=== PATIENT | female | born 1965 | race African-American/Black ===

== ENCOUNTER 2018-10-26 12:07 | Emergency (ER) | payer OTHER ==
[~2018-10-26] VITALS: Ht 160 cm; Wt 63.5 kg
[2018-10-26] MEDS ORDERED: NAPROXEN500 M2 ORAL (12:13)
--- NOTE | 2018-10-26 12:13 | Emergency Room Report ---
History of Present Illness General Chief Complaint: Medical Clearance Source: EMS Present Illness HPI 53-year-old female with a past medical history of chronic low back pain due to a fracture that occurred [address] [facility] brought in by [employer] for medical clearance pain. Patient reports 10 out of 10 pain low back pain without radiation and constant. She reports that she had a prescription for [place] however never picked it up due to being arrested. Denies tingling numbness, urinary and bowel incontinence, saddle paresthesia. No chest pain, shortness of breath, palpitation, abdominal pain, nausea vomiting or other associated symptoms. Allergies: Coded Allergies: No Known Allergies (Unverified , 10/26/18) Patient History Past Medical History: see triage record Past Surgical History: unable to obtain Pertinent Family History: none Last Menstrual Period: hystrectomy Now: No Immunizations: UTD Reviewed Nursing Documentation: PMH: Agreed; PSxH: Agreed Nursing Documentation-PMH Hx Cardiac Problems: Yes - Hystrectomy Hx Asthma: Yes Review of Systems All Other Systems: negative except mentioned in HPI Physical Exam Vital Signs Date Time Temp Pulse Resp B/P (MAP) Pulse Ox O2 Delivery O2 Flow Rate FiO2 10/26/18 11:59 97.9 95 16 110/76 (87) 99 Room Air Sp02 EP Interpretation: reviewed, normal General Appearance: normal inspection, well appearing, no apparent distress Head: normocephalic, atraumatic Eyes: bilateral eye normal inspection, bilateral eye PERRL ENT: normal ENT inspection, hearing grossly normal, normal pharynx Neck: normal inspection, full range of motion, supple, thyroid normal Respiratory: normal inspection, chest non-tender, lungs clear, normal breath sounds, no wheezing Cardiovascular #1: normal inspection, regular rate, rhythm, no edema, no murmur , normal capillary refill Gastrointestinal: normal inspection, soft Genitourinary: no CVA tenderness Musculoskeletal: back normal, gait/station normal, normal range of motion, other - Wearing a back brace Neurologic: normal inspection, alert, oriented x3, responsive Psychiatric: normal inspection, judgement/insight normal Skin: normal color Lymphatic: normal inspection, no adenopathy Medical Decision Making PA Attestation All my diagnosis and treatment plans were reviewed ad discussed with my supervising physician Dr. Erwin Diagnostic Impression: Primary Impression: Chronic back pain ER Course 53-year-old female with a past medical history of chronic low back pain due to a fracture that occurred [address] [facility] brought in by [employer] for medical clearance pain. Patient reports 10 out of 10 pain low back pain without radiation and constant. She reports that she had a prescription for [place] however never picked it up due to being arrested. Denies tingling numbness, urinary and bowel incontinence, saddle paresthesia. No chest pain, shortness of breath, palpitation, abdominal pain, nausea vomiting or other associated symptoms. Ddx considered but are not limited to: Lumbar spine sprain, strain, fracture, contusion, neuropathy Vital signs: are WNL, pt. is afebrile H&PE are most consistent with: Chronic low back pain ORDERS: Naproxen ER intervention: Naproxen DISCHARGE: At this time pt. is stable for d/c to home. Will provide printed patient care instructions, and any necessary prescriptions. Care plan and follow up instructions have been discussed with the patient prior to discharge. Patient was cleared to go to senior care with [employer] at this time no further imaging is needed as she had recently done imaging and need to follow-up with primary care provider and pain management Last Vital Signs Date Time Temp Pulse Resp B/P (MAP) Pulse Ox O2 Delivery O2 Flow Rate FiO2 10/26/18 11:59 97.9 95 16 110/76 (87) 99 Room Air Disposition: D/C TO [facility] Condition: Stable Scripts Naproxen* (NAPROXEN*) 500 Mg Tablet 500 MG ORAL TWICE A DAY, #30 TAB Prov: Max Burch 10/26/18 Patient Instructions: Chronic Back Pain Max Burch Oct 26, 2018 12:13
[2018-10-26] MEDS ORDERED: Naproxen 500mg tab ORAL ONE (12:15)
[2018-10-26 12:34] VITALS: BP 110/76
--- NOTE | 2018-10-26 12:35 | NUR ---
ED Nurse Note:pt. was cleared for booking to nursing home, [employer] officer signed d/c instructions and pt. was taken away
[2018-10-26 12:42] VITALS: BP 110/76
== END 2018-10-26 12:44 ==
LOC: EDBD 12:07 → EMR 12:40
DX: M54.5 Low back pain (principal); G89.29 Other chronic pain; Z90.710 Acquired absence of both cervix and uterus
CPT/HCPCS: 99283

== ENCOUNTER 2020-05-05 22:00 | Emergency (ER) | payer OTHER ==
[~2020-05-05] VITALS: Ht 177.8 cm; Wt 81.6 kg
[~2020-05-05 22:00] MED LIST: NAPROXEN500 M2 ORAL
--- NOTE | 2020-05-05 22:40 | Emergency Room Report ---
History of Present Illness General Chief Complaint: Female Urogenital Problems Source: Patient Present Illness HPI Patient presents with 1 week of dysuria. She also has some hesitancy. When she is urinating the pain is rated 9/10. Otherwise it is 0/10. Initially she felt feverish but did not document a temperature. She also notes a foul odor to the urine for approximately 1 month. She was treated for a UTI 8 months ago. The patient denies any external lesions in the genitalia. Patient denies exposure to Covid positive contacts. Patient has a history of hepatitis C. Patient is treated for depression with Seroquel. No sore throat, chest pain, palpitations, nausea, vomiting, diarrhea, shortness of breath, joint pain, rashes, visual changes, dizziness, headache. Allergies: Coded Allergies: No Known Allergies (Unverified , 10/26/18) COVID-19 Screening Contact w/high risk pt: No Experienced COVID-19 symptoms?: No COVID-19 Testing performed [employer] PORT[employer] ARCHITECT: No COVID-19 Screening: Negative COVID-19 COVID-19 Testing Source: project room esparza Patient History Past Medical History: see triage record, other - Hepatitis C Social History: Reports: smoking; Denies: alcohol use, drug use - IV drug abuse Social History Narrative Living with girlfriend Now: No Reviewed Nursing Documentation: PMH: Agreed; PSxH: Agreed Nursing Documentation-PMH Hx Cardiac Problems: Yes - Hystrectomy Hx Asthma: Yes History Of Psychiatric Problem: Yes Review of Systems All Other Systems: negative except mentioned in HPI Physical Exam Vital Signs Date Time Temp Pulse Resp B/P (MAP) Pulse Ox O2 Delivery O2 Flow Rate FiO2 05/05/20 22:15 98.4 85 20 134/67 (89) 98 Room Air Sp02 EP Interpretation: reviewed, normal General Appearance: well appearing, no apparent distress, GCS 15 Head: normocephalic Eyes: bilateral eye normal inspection, bilateral eye PERRL ENT: other - Wearing a mask Neck: normal inspection Respiratory: normal inspection Cardiovascular #1: regular rate, rhythm Cardiovascular #2: 2+ radial (R) Gastrointestinal: normal inspection Musculoskeletal: gait/station normal Neurologic: alert, grossly normal Psychiatric: mood/affect normal Skin: other - Fully dressed Medical Decision Making Diagnostic Impression: Primary Impression: UTI (urinary tract infection) Qualified Codes: N30.00 - Acute cystitis without hematuria ER Course Patient presents with dysuria. Differential includes UTI, vaginitis amongst others. There is no evidence of pyelonephritis at this time and the patient is nontoxic. Urinalysis is indicated. In addition the patient will be treated with Pyridium, Tylenol and Macrobid. Urinalysis with minimal pyuria. Discussed with the patient that the urinalysis is not diagnostic for urinary tract infection. However the patient has symptoms consistent with urinary tract infection. Advised the patient for outpatient follow-up. She is not improved she is advised to return. Patient stable for outpatient observation and treatment. Laboratory Tests Test 05/05/20 23:40 Urine Color Pale yellow Urine Appearance Clear Urine pH 6.5 (4.5-8.0) Urine Specific [place] 1.010 (1.005-1.035) Urine Protein Negative (NEGATIVE) Urine Glucose (UA) Negative (NEGATIVE) Urine Ketones Negative (NEGATIVE) Urine Blood Negative (NEGATIVE) Urine Nitrite Negative (NEGATIVE) Urine Bilirubin Negative (NEGATIVE) Urine Urobilinogen Normal MG/DL (0.0-1.0) Urine Leukocyte Esterase 1+ (NEGATIVE) H Urine RBC 0-2 /HPF (0 - 2) Urine WBC 0-2 /HPF (0 - 2) Urine Squamous Epithelial Cells Few /LPF (NONE/OCC) Urine Bacteria None /HPF (NONE) Last Vital Signs Date Time Temp Pulse Resp B/P (MAP) Pulse Ox O2 Delivery O2 Flow Rate FiO2 05/05/20 23:55 98.3 77 20 11/74 99 Room Air Status: improved Disposition: HOME, SELF-CARE Condition: Improved Scripts Acetaminophen (Tylenol) 325 Mg Tablet 650 MG ORAL Q6H PRN for Prn Pain/Headache/Temp > 101, #20 TAB 0 Refills Prov: Jett Abdalla MD 05/05/20 Phenazopyridine Hcl* (PYRIDIUM*) 200 Mg Tablet 200 MG ORAL THREE TIMES A DAY, #9 TAB 0 Refills Prov: Jett Abdalla MD 05/05/20 Nitrofurantoin Monohyd/M-Cryst* (MACROBID 100 MG*) 100 Mg Capsule 100 MG ORAL EVERY 12 HOURS, #14 CAP Prov: Jett Abdalla MD 05/05/20 Referrals: [facility],REFERRING (PCP) Jett Abdalla MD May 05, 2020 22:40
[2020-05-05] MEDS ORDERED: Phenazopyridine 200mg tab ORAL ONE (22:45)
--- NOTE | 2020-05-05 22:45 | NUR ---
ED Nurse Note: Recieved pt from home, here with c/o burning during urination x 2 days, denies fevers, nausea or emesis or any other complaints, pt denies vaginal discharge or odor, pt states had uti 1 month ago but did not complete meds and it came back, pt denies any other complaints or discomforts, pt assisted to bathroom for urine sample but states she forgot to collect, pt given water, will continnue to monitor while waiting for urine sample, pt has abd pain at 8/10, no other pain, sob, cp or discomforts.
[2020-05-05] MEDS ORDERED: NITROFURANTOIN100 M2 ORAL (22:50)
[2020-05-05] MEDS ORDERED: TYLENOL325 MG ORAL (22:50)
[2020-05-05] MEDS ORDERED: PHENAZOPYRIDIN200 MG ORAL (22:50)
[2020-05-05 23:45] VITALS: BP 11/74
[2020-05-05 23:51] LABS: APPEARANCE,URINE CLEAR; BILIRUBIN, URINE NEGATIVE (NEGATIVE); COLOR,URINE PALE YELLOW; GLUCOSE, URINE (UA) NEGATIVE (NEGATIVE); KETONES,URINE NEGATIVE (NEGATIVE); LEUKOCYTE ESTERASE ,URINE 1+ (NEGATIVE); NITRITE,URINE NEGATIVE (NEGATIVE); PH,URINE 6.5 (4.5-8.0); PROTEIN,URINE NEGATIVE (NEGATIVE); UROBILINOGEN,URINE NORMAL MG/DL (0.0-1.0)
[2020-05-05 23:55] VITALS: BP 11/74
--- NOTE | 2020-05-05 23:55 | NUR ---
ER DISCHARGE NOTE: Patient is cleared to be discharged per ERMD, pt is aox4, on room air, with stable vital signs. pt was given dc and prescription instructions, pt was able to verbalize understanding, pt id band removed without complications. pt is able to ambulate with steady gait. pt took all belongings.
== END 2020-05-05 23:55 | disposition home or self-care (01) ==
LOC: EMR 22:30
DX: N30.00 Acute cystitis without hematuria (principal); J45.909 Unspecified asthma, uncomplicated; F17.200 Nicotine dependence, unspecified, uncomplicated; Z90.710 Acquired absence of both cervix and uterus
CPT/HCPCS: 81003; Z7502; 99283